=== PATIENT | male | born 1960 | race Caucasian/White ===

== ENCOUNTER 2018-02-22 05:24 | Emergency (ER) | payer BC ==
[2018-02-22 05:29] VITALS: TEMP 95; O2SAT 99
[2018-02-22] MEDS ORDERED: SODIUM CHLORIDE 0.9% 1000ML 1,000 ML IV ONE (05:45)
[2018-02-22] MEDS ORDERED: ONDANSETRON HCL 4 MG/2 ML SOL IV ONE (05:45)
[2018-02-22] MEDS ORDERED: HYDROMORPHONE HCL 2 MG/ML SOL IV ONE ×2 (05:45→06:45)
[2018-02-22] MEDS ORDERED: HYDROMORPHONE 1 MG/ML SYRINGE ONE ×2 (05:49→06:49)
[2018-02-22] MEDS ORDERED: ONDANSETRON HCL 4 MG/2 ML SOL ONE (05:49)
[2018-02-22 06:13] LABS: BASOPHILS % (AUTO) 1 % (0-3); EOSINOPHILS % (AUTO) 3 % (0-9); HEMATOCRIT 39 % (39-53); HEMOGLOBIN 13.1 gm/dl (13.5-17.7); LYMPHOCYTES % (AUTO) 46.8 % (10-50); MEAN CORPUSCULAR HEMOGLOBIN 31.5 pg (27.0-32.0); MEAN CORPUSCULAR HGB CONC 33.8 gm/dl (32.0-36.0); MEAN CORPUSCULAR VOLUME 93 fL (80-100); MONOCYTES % (AUTO) 6.3 % (0-12); NEUTROPHILS % (AUTO) 43.6 % (37-80)
[2018-02-22 06:30] LABS: ALBUMIN 3.3 gm/dl (3.4-5.0); BILIRUBIN,TOTAL 0.4 mg/dl (0.2-1.0); CALCIUM 8.1 mg/dl (8.5-10.1); CARBON DIOXIDE 26.3 mEq/L (21-32); CREATININE 1.11 mg/dl (0.80-1.30); POTASSIUM 3.9 mMol/L (3.5-5.1); TOTAL PROTEIN 6.5 gm/dl (6.4-8.2)
[2018-02-22] MEDS ORDERED: SODIUM CHLORIDE 0.9% 1000ML 1,000 ML IV SCH (06:30)
[2018-02-22] MEDS ORDERED: HYDROMORPHONE 1 MG/ML SYRINGE IV ONE (06:46)
[2018-02-22 07:00] VITALS: BP 118/79; PULSE 51; RESP 16
== END 2018-02-22 07:28 | disposition short-term general hospital (02) ==
LOC: ED 05:24
DX: K81.0 Acute cholecystitis (principal)
CPT/HCPCS: 36415; 80053; 82150; 85025; 96365; 96366; 96374; 96375; 99284; 99285; J2405; J1170